=== PATIENT | female | born 1995 | race Caucasian/White ===

== ENCOUNTER 2022-04-30 14:14 | Outpatient (CLI) | payer OTHER ==
[2022-04-30] MEDS ORDERED: PRENATAL TABLE1 EAC3 PO (14:50)
== END 2022-05-01 09:00 | disposition home or self-care (01) ==
LOC: OBS/DEL 14:14
PROVIDERS: ATTEND Obstetrics & Gynecology
DX: O99.343 Other mental disorders complicating pregnancy, third trimester (principal); Z3A.30 30 weeks gestation of pregnancy; O16.9 Unspecified maternal hypertension, unspecified trimester

== ENCOUNTER 2022-06-21 14:30 | Inpatient (IN) | payer OTHER ==
[~2022-06-21] VITALS: Ht 160 cm; Wt 2.3 kg
[~2022-06-21 14:30] MED LIST: PRENATAL TABLE1 EAC3 PO
[2022-06-26] MEDS ORDERED: PRENATABS RX T1 EACH PO (12:41)
== END 2022-06-29 13:49 | disposition home or self-care (01) | DRG 787 ==
LOC: EDSTATUS 14:30 → LDR 06-26 11:23 → OB/GYN 06-26 11:23 → LDR 06-26 11:30 → OB/GYN 06-26 15:01 → LDR 06-28 14:30 → OB/GYN 06-29 13:49
PROVIDERS: ADMIT Obstetrics & Gynecology; ATTEND Obstetrics & Gynecology
PROC: 4A1HXCZ Monitoring of Products of Conception, Cardiac Rate, External Approach (ICD-10-PCS; 2022-06-26)
PROC: 10D00Z1 Extraction of Products of Conception, Low, Open Approach (ICD-10-PCS; principal; 2022-06-26 13:00)
DX: O36.5930 Maternal care for other known or suspected poor fetal growth, third trimester, not applicable or unspecified (principal); O41.03X0 Oligohydramnios, third trimester, not applicable or unspecified; Z3A.38 38 weeks gestation of pregnancy; Z37.0 Single live birth; Z20.822 Contact with and (suspected) exposure to COVID-19